=== PATIENT | male | born 1940 | race Caucasian/White ===

== ENCOUNTER 2020-07-30 23:25 | Emergency (ER) | payer MEDICARE, MEDICAID ==
[2020-07-31] MEDS ORDERED: Acetaminophen 325 MG Tab PO PRN (00:05)
[2020-07-31] MEDS ORDERED: Sodium Chloride 0.9% 10 ML Syringe FLUSH PRN (00:07)
[2020-07-31 00:45] LABS: ANION GAP 9.3 mmol/L (5-15)
--- NOTE | 2020-07-31 01:27 | EDM.PDOC ---
ED HPI GENERAL MEDICAL PROBLEM - General Chief Complaint: General Stated Complaint: FEVER, COVID POSITIVE Time Seen by Provider: 07/31/20 01:00 Source of Information: Reports: [facility] Records History Limitations: Reports: Altered Mental Status - History of Present Illness INITIAL COMMENTS - FREE TEXT/NARRATIVE: 79-year-old male transferred by ground ambulance from [facility] in the [place], [place] for high fevers and hypoxemia. Patient was tested for COVID-19 on July 23 results confirmed a positive test in July 28. He began experiencing increased respiratory distress requiring O2 oxygen per nasal cannula. He began running fevers as high high as 103 and O2 saturations were dropping into the 80s per nursing report. He was transferred to [facility] further evaluation. Patient was placed on a nonrebreather mask at 15 L and O2 saturations improved to 90 to 91%. He was tachypneic. Temperature was 102 upon arrival and he was given Tylenol 650 mg. Temperature now is currently 99.8. He is lethargic and is unable to answer questions asked although he is able to speak and ask for orange juice. 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 He has been listed as a full code from his [facility]. Onset: Gradual Onset Date: 07/23/20 Duration: Day(s):, Getting Worse Location: Reports: Generalized Severity: Severe Improves with: Reports: Other (O2) Treatments SUBSTANCE ABUSE RN: Reports: Acetaminophen - Related Data Allergies Allergy/AdvReac Type Severity Reaction Status Date / Time No Known Drug Allergies Allergy Cannot Verified 07/30/20 23:30 Remember Home Meds: Home Meds Acetaminophen 500 mg PO Q6H PRN 07/30/20 [History] Acetaminophen 650 mg PO BEDTIME 07/30/20 [History] Aspirin 325 mg PO DAILY 07/30/20 [History] Benztropine [Cogentin] 0.5 mg PO BID 07/30/20 [History] Divalproex Sodium [Depakote ER] 250 mg PO BID 07/30/20 [History] Divalproex Sodium [Depakote ER] 500 mg PO BID 07/30/20 [History] Famotidine 20 mg PO BID 07/30/20 [History] Fluticasone Propionate [Flonase Allergy Relief] 1 spray NS DAILY PRN 07/30/20 [History] Furosemide [Lasix] 40 mg PO DAILY 07/30/20 [History] Levothyroxine 125 mcg PO ACBREAKFAST 07/30/20 [History] Mag Hydrox/Aluminum Hyd/Simeth [Liquid Antacid Suspension] 5 ml PO Q4H PRN 07/30/20 [History] Melatonin 5 mg PO BEDTIME 07/30/20 [History] Metoprolol Tartrate 12.5 mg PO BID 07/30/20 [History] Mirtazapine 30 mg PO BEDTIME 07/30/20 [History] OLANZapine [Olanzapine] 10 mg PO BEDTIME 07/30/20 [History] Potassium Chloride 20 meq PO ASDIRECTED 07/30/20 [History] polyethylene glycoL 3350 [MiraLAX] 17 gm PO DAILY 07/30/20 [History] risperiDONE [Risperdal] 4 mg PO BEDTIME 07/31/20 [History] Past Medical History HEENT History: Reports: Allergic Rhinitis Cardiovascular History: Reports: Heart Failure, High Cholesterol, Hypertension, Pulmonary Hypertension Other Cardiovascular History: Rheumatic tricuspid insufficiency. Left bundle branch block Respiratory History: Reports: Other (See Below) Other Respiratory History: Covid positive - 2019 Gastrointestinal History: Reports: Chronic Constipation, GERD Genitourinary History: Reports: Urinary Incontinence Musculoskeletal History: Reports: Osteoarthritis Other Musculoskeletal History: trochanteric bursitis of right hip Neurological History: Reports: Alzheimers Disease Psychiatric History: Reports: Alzheimers Disease, Dementia Endocrine/Metabolic History: Reports: Hypokalemia, Hypomagnesemia, Hypothyroidism Other Endocrine/Metabolic History: Hashimotos Other Hematologic History: Thrombocytopenia - Infectious Disease History Other Infectious Disease History: Covid positive - 2019 - Past Surgical History Cardiovascular Surgical History: Reports: Pacer Social & Family History - Family History Psychiatric: Reports: Bipolar - Tobacco Use Smoking Status *Q: Former Smoker Used Tobacco, but Quit: No ED ROS GENERAL - Review of Systems Review Of Systems: Unable To Obtain Reason Not Obtained: Noncommunicable ED EXAM, GENERAL - Physical Exam Exam: See Below Exam Limited By: Altered Mental Status General Appearance: Lethargic, Moderate Distress Nose: Normal Inspection Throat/Mouth: No: Perioral Cyanosis Head: Atraumatic Neck: Normal Inspection Respiratory/Chest: Decreased Breath Sounds, Rhonchi Cardiovascular: Tachycardia GI/Abdominal: Soft, Non-Tender Extremities: Non-Tender Neurological: Inattentive, Confused, Slow to Respond Psychiatric: Flat Affect Skin Exam: Increased Warmth Course - Vital Signs Last Recorded V/S: Last Vital Signs Temp 99.3 F 07/31/20 01:00 Pulse 102 H 07/31/20 01:15 Resp 44 H 07/31/20 01:15 BP 115/96 H 07/31/20 01:15 Pulse Ox 92 L 07/31/20 01:15 - Orders/Labs/Meds Orders: Active Orders 24 hr Category Date Time Status Peripheral IV Care [RC] . DIRECTED Care 07/31/20 00:09 Active Chest 1V Frontal [CR] Stat Exams 07/31/20 00:08 Ordered Acetaminophen [TylenoL] Med 07/31/20 00:05 Active 650 mg PO Q4H PRN Sodium Chloride 0.9% [Saline Flush] Med 07/31/20 00:07 Active 10 ml FLUSH Q8HR PRN Isolation [COMM] Stat Oth 07/31/20 00:05 Ordered Peripheral IV Insertion Adult [OM.PC] Routine Oth 07/31/20 00:07 Ordered Medication Orders Acetaminophen (Tylenol) 650 mg PO Q4H PRN PRN Reason: Fever Greater Than 101 Sodium Chloride (Saline Flush) 10 ml FLUSH Q8HR PRN PRN Reason: keep vein open Labs: Laboratory Tests 07/30/20 07/30/20 Range/Units 23:35 23:35 WBC 6.31 (5.00-10.00) 10^3/uL RBC 4.53 (4.50-6.00) 10^6/uL Hgb 14.1 (13.0-17.0) g/dL Hct 43.7 (40.0-52.0) % MCV 96.5 H (82.0-92.0) fL MCH 31.1 H (27.0-31.0) pg MCHC 32.3 (32.0-36.0) g/dL RDW 14.0 (11.5-14.5) % Plt Count 87 L (150-400) 10^3/uL MPV 13.5 H (7.4-10.4) fL Immature Gran % (Auto) 1.9 (0.0-5.0) % Neut % (Auto) 73.3 H (50.0-70.0) % Lymph % (Auto) 15.1 L (20.0-40.0) % [place] % (Auto) 9.5 H (2.0-8.0) % Eos % (Auto) 0.0 L (1.0-3.0) % Baso % (Auto) 0.2 (0.0-1.0) % Neut # (Auto) 4.63 (2.50-7.00) 10^3/uL Lymph # (Auto) 0.95 L (1.00-4.00) 10^3/uL [place] # (Auto) 0.60 (0.10-0.80) 10^3/uL Eos # (Auto) 0.00 L (0.10-0.30) 10^3/uL Baso # (Auto) 0.01 (0.00-0.10) 10^3/uL Immature Gran # (Auto) 0.12 (0.00-0.50) 10^3/uL Sodium 141 (136-145) mmol/L Potassium 4.3 (3.3-5.3) mmol/L Chloride 103 (98-115) mmol/L Carbon Dioxide 33.0 H (21.0-32.0) mmol/L Anion Gap 9.3 (5-15) mmol/L BUN 42 H (6-25) mg/dL Creatinine 1.20 H (0.51-1.17) mg/dL Est Cr Clr Drug Dosing 54.79 mL/min Estimated GFR (MDRD) 58 mL/min Glucose 144 H (75 - 99) mg/dL Calcium 8.4 L (8.7-10.3) mg/dL Meds: Medications Generic Name Dose Route Start Last Admin Trade Name Freq PRN Reason Stop Dose Admin Acetaminophen 650 mg 07/31/20 00:05 Tylenol PO Q4H PRN Fever Greater Than 101 Sodium Chloride 10 ml 07/31/20 00:07 Saline Flush FLUSH Q8HR PRN keep vein open - Radiology Interpretation Free Text/Narrative:: 1 view chest x-ray Findings: Pacemaker noted with leads in the right heart Lower lobe consolidation and pleural fluid, possible pneumonia Bilateral perihilar and right basilar atelectasis Enlarged. No acute bony abnormalities Impression: Left basilar consolidation and pleural fluid, possible pneumonia Lateral perihilar and right basilar atelectasis Departure - Departure Time of Disposition: 02:00 Disposition: DC/Tfer to Critical Access 66 Condition: Serious Clinical Impression: Lab test positive for detection of COVID-19 virus, Hypoxemia requiring supplemental oxygen, Febrile illness, acute - Discharge Information Instructions: Hypoxemia, COVID-19, Fever, Adult, [id number] Referrals: Ivonne Harry DRILL PRESSER [Primary Care Provider] - Sepsis Event Note (ED) - Evaluation Sepsis Screening Result: Possible Sepsis Risk - Focused Exam Vital Signs: Vital Signs Temp Pulse Resp BP Pulse Ox 07/31/20 01:15 102 H 44 H 115/96 H 92 L 07/31/20 01:00 99.3 F 105 H 32 H 154/78 H 91 L 07/31/20 00:45 104 H 33 H 148/85 H 91 L 07/31/20 00:30 104 H 36 H 144/65 H 90 L 07/31/20 00:15 102 H 37 H 132/81 89 L 07/31/20 00:12 100.0 F 07/31/20 00:00 102 H 36 H 127/69 89 L 07/30/20 23:45 105 H 39 H 118/64 91 L 07/30/20 23:44 102.0 F H 106 H 40 H 100/67 91 L - My Orders Last 24 Hours: My Active Orders 07/31/20 00:05 Acetaminophen [TylenoL] 650 mg PO Q4H PRN Isolation [COMM] Stat 07/31/20 00:07 Sodium Chloride 0.9% [Saline Flush] 10 ml FLUSH Q8HR PRN Peripheral IV Insertion Adult [OM.PC] Routine 07/31/20 00:08 Chest 1V Frontal [CR] Stat 07/31/20 00:09 Peripheral IV Care [RC] . DIRECTED - Assessment/Plan Last 24 Hours: My Active Orders 07/31/20 00:05 Acetaminophen [TylenoL] 650 mg PO Q4H PRN Isolation [COMM] Stat 07/31/20 00:07 Sodium Chloride 0.9% [Saline Flush] 10 ml FLUSH Q8HR PRN Peripheral IV Insertion Adult [OM.PC] Routine 07/31/20 00:08 Chest 1V Frontal [CR] Stat 07/31/20 00:09 Peripheral IV Care [RC] . DIRECTED Assessment:: 1. COVID positive test 2. Acute hypoxemia requiring supplemental oxygen 3. Febrile Plan: 1. Transfer to critical Access for acute hypoxemia due to COVID, patient will be transferred to [facility] 2. Febrile
[2020-07-31 01:47] VITALS: BP 141/106; PULSE 99
--- NOTE | 2020-07-31 08:31 | CR ---
[id number] RAD/RAD Chest PA or AP 1V EXAM: SINGLE VIEW CHEST. INDICATION: RESPIRATORY FAILURE COMPARISON: NO PREVIOUS SIMILAR EXAM IS AVAILABLE FINDINGS: Small bilateral effusions are seen Bibasilar atelectasis is identified The cardiac silhouette is enlarged The aorta is tortuous. A pacemaker is also noted IMPRESSION: BILATERAL EFFUSIONS AND BIBASILAR ATELECTASIS CONSIDER FOLLOW-UP RADIOGRAPH QUESTION OF EARLY RIGHT UPPER LOBE PNEUMONIA Kwadwo Le MD 07/31/20 [id number] Thank you for allowing us to participate in the care of your patient.
== END 2020-07-31 02:00 ==
LOC: KA.ED 23:25
DX: U07.1 COVID-19 (principal); R09.02 Hypoxemia; I11.0 Hypertensive heart disease with heart failure; I50.9 Heart failure, unspecified; K21.9 Gastro-esophageal reflux disease without esophagitis; M19.90 Unspecified osteoarthritis, unspecified site; G30.9 Alzheimer's disease, unspecified; F02.80 Dementia in other diseases classified elsewhere, unspecified severity, without behavioral disturbance, psychotic disturbance, mood disturbance, and anxiety; E03.9 Hypothyroidism, unspecified; Z87.891 Personal history of nicotine dependence; Z79.82 Long term (current) use of aspirin; Z79.899 Other long term (current) drug therapy
CPT/HCPCS: 36415; 71045; 80048; 85025; 99285-25

== ENCOUNTER 2021-10-18 11:41 | Emergency (ER) | payer MEDICARE, MEDICAID ==
--- NOTE | 2021-10-18 12:06 | EDM.PDOC ---
ED HPI GENERAL MEDICAL PROBLEM - General Chief Complaint: General Stated Complaint: POSSIBLE SEPSIS Time Seen by Provider: 10/18/21 11:53 - History of Present Illness INITIAL COMMENTS - FREE TEXT/NARRATIVE: Jagdish, 81-year-old male, transported here by ambulance from [facility] in [place]. Understanding was he was question to be septic as he had a low-grade fever last night and again this morning. Was given acetaminophen which seemed to improve the fever last night. Was tested negative for Covid. Has no major complaints other than stating he is just not felt well in general. Denies any major complaints. Documented history of dementia (Alzheimer's) eyes with a visual disturbance. He is appropriately responsive and conversive upon his arrival and throughout the stay. Onset: Gradual generalized Pain Score (Numeric/FACES): 5 - Related Data Allergies Allergy/AdvReac Type Severity Reaction Status Date / Time No Known Drug Allergies Allergy Cannot Verified 10/18/21 12:45 Remember Home Meds: Home Meds Acetaminophen 500 mg PO Q6H PRN 07/30/20 [History] Acetaminophen 650 mg PO BEDTIME 07/30/20 [History] Aspirin 325 mg PO DAILY 07/30/20 [History] Benztropine [Cogentin] 0.5 mg PO BID 07/30/20 [History] Divalproex Sodium [Depakote ER] 250 mg PO BID 07/30/20 [History] Divalproex Sodium [Depakote ER] 500 mg PO BID 07/30/20 [History] Famotidine 20 mg PO BID 07/30/20 [History] Fluticasone Propionate [Flonase Allergy Relief] 1 spray NS DAILY PRN 07/30/20 [History] Furosemide [Lasix] 40 mg PO DAILY 07/30/20 [History] Levothyroxine 125 mcg PO ACBREAKFAST 07/30/20 [History] Mag Hydrox/Aluminum Hyd/Simeth [Liquid Antacid Suspension] 5 ml PO Q4H PRN 07/30/20 [History] Melatonin 5 mg PO BEDTIME 07/30/20 [History] Metoprolol Tartrate 12.5 mg PO BID 07/30/20 [History] Mirtazapine 30 mg PO BEDTIME 07/30/20 [History] OLANZapine [Olanzapine] 10 mg PO BEDTIME 07/30/20 [History] Potassium Chloride 20 meq PO ASDIRECTED 07/30/20 [History] polyethylene glycoL 3350 [MiraLAX] 17 gm PO DAILY 07/30/20 [History] risperiDONE [Risperdal] 4 mg PO BEDTIME 07/31/20 [History] Past Medical History HEENT History: Reports: Allergic Rhinitis Cardiovascular History: Reports: Heart Failure, High Cholesterol, Hypertension, Pulmonary Hypertension Other Cardiovascular History: Rheumatic tricuspid insufficiency. Left bundle branch block Respiratory History: Reports: Other (See Below) Other Respiratory History: Covid positive - 2019 Gastrointestinal History: Reports: Chronic Constipation, GERD Genitourinary History: Reports: Urinary Incontinence Musculoskeletal History: Reports: Osteoarthritis Other Musculoskeletal History: trochanteric bursitis of right hip Neurological History: Reports: Alzheimers Disease Psychiatric History: Reports: Alzheimers Disease, Dementia Endocrine/Metabolic History: Reports: Hypokalemia, Hypomagnesemia, Hypothyroidism Other Endocrine/Metabolic History: Hashimotos Other Hematologic History: Thrombocytopenia - Infectious Disease History Other Infectious Disease History: Covid positive - 2019 - Past Surgical History Cardiovascular Surgical History: Reports: Pacer Social & Family History - Family History Family Medical History: No Pertinent Family History Psychiatric: Reports: Bipolar ED ROS GENERAL - Review of Systems Review Of Systems: Comprehensive ROS is negative, except as noted in HPI. Reason Not Obtained: Per review of reports, records, and denial of any point fax. ED EXAM, GENERAL - Physical Exam Exam: See Below Free Text/Narrative:: Alert, oriented, demonstrating no distress. HEENT is negative discharge or deformity. Neck soft supple no rigidity or lymphadenopathy appreciated. Thorax mildly diminished at the bases with no wheezes no crackles noted. Cardiac regular. I do not appreciate any murmur. Abdomen is soft bowel sounds are present. There is no tenderness in the inguinal area no herniation noted. Chronic aches and pains to the bilateral knees which she states is been ongoing for several months. He has a chronic ulceration to the base of the left foot to the heel area which will be cultured. He has what appears chronic contracture of the fourth fifth digits of the left hand partially the third digit. He remains appropriately responsive with no neurological deficits of acute nature. #1 Interpretation EKG Date: 10/18/21 Time: 12:31 Rhythm: Other (Paced) Rate (Beats/Min): 69 Comparison: NA - No Prior EKG Course - Vital Signs Last Recorded V/S: Last Vital Signs Temp 97.7 F 10/18/21 14:16 Pulse 89 10/18/21 14:16 Resp 13 10/18/21 14:16 BP 126/53 L 10/18/21 14:16 Pulse Ox 89 L 10/18/21 14:16 - Orders/Labs/Meds Orders: Active Orders 24 hr Category Date Time Status Peripheral IV Care [RC] . DIRECTED Care 10/18/21 12:14 Active CULTURE BLOOD [BC] Stat Lab 10/18/21 12:30 Received CULTURE BLOOD [BC] Stat Lab 10/18/21 12:36 Received CULTURE, ANAEROBE & AEROBE [MREF] Stat Lab 10/18/21 14:00 Received Sodium Chloride 0.9% [Saline Flush] Med 10/18/21 12:13 Active 10 ml FLUSH Q8HR PRN Blood Culture x2 Reflex Set [OM.PC] Stat Oth 10/18/21 12:13 Ordered Peripheral IV Insertion Adult [OM.PC] Stat Oth 10/18/21 12:14 Ordered EKG 12 Lead [EK] Stat Ther 10/18/21 12:14 Ordered Medication Orders Sodium Chloride (Sodium Chloride 0.9% 10 Ml Syringe) 10 ml FLUSH Q8HR PRN PRN Reason: keep vein open Labs: Laboratory Tests 10/18/21 10/18/21 10/18/21 Range/Units 12:14 12:14 12:30 WBC (5.00-10.00) 10^3/uL RBC (4.50-6.00) 10^6/uL Hgb (13.0-17.0) g/dL Hct (40.0-52.0) % MCV (82.0-92.0) fL MCH (27.0-31.0) pg MCHC (32.0-36.0) g/dL RDW (11.5-14.5) % Plt Count (150-400) 10^3/uL MPV (7.4-10.4) fL Immature Gran % (Auto) (0.0-5.0) % Neut % (Auto) (50.0-70.0) % Lymph % (Auto) (20.0-40.0) % [place] % (Auto) (2.0-8.0) % Eos % (Auto) (1.0-3.0) % Baso % (Auto) (0.0-1.0) % Neut # (Auto) (2.50-7.00) 10^3/uL Lymph # (Auto) (1.00-4.00) 10^3/uL [place] # (Auto) (0.10-0.80) 10^3/uL Eos # (Auto) (0.10-0.30) 10^3/uL Baso # (Auto) (0.00-0.10) 10^3/uL Immature Gran # (Auto) (0.00-0.50) 10^3/uL D-Dimer, Quantitative 3710 H (<400) ng/mL Sodium (136-145) mmol/L Potassium (3.5-5.1) mmol/L Chloride (98-107) mmol/L Carbon Dioxide (21.0-32.0) mmol/L Anion Gap (5-15) mmol/L BUN (7-18) mg/dL Creatinine (0.51-1.17) mg/dL Est Cr Clr Drug Dosing mL/min Estimated GFR (MDRD) mL/min Glucose (70-140) mg/dL Lactic Acid 1.6 (0.4-2.0) mmol/L Calcium (8.7-10.3) mg/dL Total Bilirubin (0.2-1.0) mg/dL AST (15-37) U/L ALT (14-63) U/L Alkaline Phosphatase (46-116) U/L Total Protein (6.4-8.2) g/dL Albumin (3.40-5.00) g/dL Specimen Type Urincath Urine Color Yellow (YELLOW) Urine Appearance Clear (CLEAR) Urine pH 5.5 (5.0-9.0) Ur Specific [place] 1.020 (1.005-1.030) Urine Protein Negative (NEGATIVE) mg/dL Urine Glucose (UA) Negative (NEGATIVE) mg/dL Urine Ketones Negative (NEGATIVE) mg/dL Urine Occult Blood Negative (NEGATIVE) Urine Nitrite Negative (NEGATIVE) Urine Bilirubin Negative (NEGATIVE) Urine Urobilinogen 0.2 (0.2-1.0) E.U./dL Ur Leukocyte Esterase Negative (NEGATIVE) 10/18/21 10/18/21 Range/Units 12:30 12:30 WBC 11.56 H (5.00-10.00) 10^3/uL RBC 3.71 L (4.50-6.00) 10^6/uL Hgb 11.4 L D (13.0-17.0) g/dL Hct 37.1 L (40.0-52.0) % MCV 100.0 H D (82.0-92.0) fL MCH 30.7 (27.0-31.0) pg MCHC 30.7 L (32.0-36.0) g/dL RDW 12.3 (11.5-14.5) % Plt Count 121 L (150-400) 10^3/uL MPV 12.0 H (7.4-10.4) fL Immature Gran % (Auto) 0.3 (0.0-5.0) % Neut % (Auto) 65.6 (50.0-70.0) % Lymph % (Auto) 16.5 L (20.0-40.0) % [place] % (Auto) 17.1 H (2.0-8.0) % Eos % (Auto) 0.3 L (1.0-3.0) % Baso % (Auto) 0.2 (0.0-1.0) % Neut # (Auto) 7.58 H (2.50-7.00) 10^3/uL Lymph # (Auto) 1.91 (1.00-4.00) 10^3/uL [place] # (Auto) 1.98 H (0.10-0.80) 10^3/uL Eos # (Auto) 0.03 L (0.10-0.30) 10^3/uL Baso # (Auto) 0.02 (0.00-0.10) 10^3/uL Immature Gran # (Auto) 0.04 (0.00-0.50) 10^3/uL D-Dimer, Quantitative (<400) ng/mL Sodium 143 (136-145) mmol/L Potassium 4.3 (3.5-5.1) mmol/L Chloride 102 (98-107) mmol/L Carbon Dioxide 35.4 H (21.0-32.0) mmol/L Anion Gap 9.9 (5-15) mmol/L BUN 29 H (7-18) mg/dL Creatinine 1.09 (0.51-1.17) mg/dL Est Cr Clr Drug Dosing 53.15 mL/min Estimated GFR (MDRD) > 60 mL/min Glucose 134 (70-140) mg/dL Lactic Acid (0.4-2.0) mmol/L Calcium 9.1 (8.7-10.3) mg/dL Total Bilirubin 0.7 (0.2-1.0) mg/dL AST 24 (15-37) U/L ALT 19 (14-63) U/L Alkaline Phosphatase 55 (46-116) U/L Total Protein 6.8 (6.4-8.2) g/dL Albumin 2.55 L (3.40-5.00) g/dL Specimen Type Urine Color (YELLOW) Urine Appearance (CLEAR) Urine pH (5.0-9.0) Ur Specific [place] (1.005-1.030) Urine Protein (NEGATIVE) mg/dL Urine Glucose (UA) (NEGATIVE) mg/dL Urine Ketones (NEGATIVE) mg/dL Urine Occult Blood (NEGATIVE) Urine Nitrite (NEGATIVE) Urine Bilirubin (NEGATIVE) Urine Urobilinogen (0.2-1.0) E.U./dL Ur Leukocyte Esterase (NEGATIVE) Meds: Medications Generic Name Dose Route Start Last Admin Trade Name Freq PRN Reason Stop Dose Admin Sodium Chloride 10 ml 10/18/21 12:13 Sodium Chloride 0.9% 10 Ml Syringe FLUSH Q8HR PRN keep vein open - Radiology Interpretation Free Text/Narrative:: No evidence of pneumonia. - Re-Assessments/Exams Free Text/Narrative Re-Assessment/Exam: 10/18/21 15:33 On arrival with Jagdish not giving any specifics other than he did not feel well records stating he had been febrile and given Tylenol with apparent resolution. Phone call was placed to [facility] in [place] and I spoke with his legal guardian Calderon Turciosrichardvarghese As we had reviewed records finding that [facility] was one of the guarantee of payment sources. It was decided at that time that if he would remain on hospice we should return him to the facility, and if he had been revoked/declined of hospice consideration for minimal work-up to be given. Free Text/Narrative Re-Assessment/Exam: 10/18/21 15:37 Referring: Call to [facility] in [place] after lab findings revealed negative chest x-ray for pulmonary infiltrates/pneumonia, urinalysis electrolytes, and CBC within normal limits. Discussed elevation of D-dimer which would lead to further scanning and treatment which was declined for any further evaluation per Calderon Galan. Departure - Departure Time of Disposition: 15:28 Disposition: DC/Tfer to SNF 03 Condition: Fair Clinical Impression: Elevated d-dimer, Wound discharge Dementia Qualifiers: Dementia type: Alzheimer's Alzheimer's disease onset: unspecified onset Dementia behavioral disturbance: with behavioral disturbance Qualified Code(s): G30.9 - Alzheimer's disease, unspecified - Discharge Information *PRESCRIPTION DRUG MONITORING PROGRAM REVIEWED*: Not Applicable *COPY OF PRESCRIPTION DRUG MONITORING REPORT IN PATIENT DELTA: Not Applicable Instructions: Dementia, [id number] Referrals: PCP,Not In Area [Ordering Only Provider] - Meng Wattres MD [Physician] - Forms: ED Department Discharge Additional Instructions: Will return to the facility with all previous medications, diet, and routines to be followed. Culture is pending on the left foot ulceration and report will be forwarded once received. Continue everything as directed and contact with [facility] in [place] for any adjustments in treatment cares. Communication with Calderon egan was made twice this encounter. Sepsis Event Note (ED) - Focused Exam Vital Signs: Vital Signs Temp Pulse Resp BP Pulse Ox 10/18/21 14:16 97.7 F 89 13 126/53 L 89 L 10/18/21 13:33 68 15 112/50 L 97 10/18/21 13:17 98 10/18/21 13:00 69 16 119/50 L 97 10/18/21 12:30 60 15 130/55 L 97 10/18/21 12:00 68 17 131/61 97 10/18/21 11:47 97 F 62 14 121/52 L 94 L - Problem List & Annotations (1) Wound discharge SNOMED Code(s): 170027303 Code(s): T14.8XXA - OTHER INJURY OF UNSPECIFIED BODY REGION, INITIAL ENCOUNTER Status: Acute Current Visit: Yes (2) Dementia SNOMED Code(s): 31172017 Code(s): F03.90 - UNSPECIFIED DEMENTIA WITHOUT BEHAVIORAL DISTURBANCE Status: Acute Current Visit: Yes Qualifiers: Dementia type: Alzheimer's Alzheimer's disease onset: unspecified onset Dementia behavioral disturbance: with behavioral disturbance Qualified Code(s): G30.9 - Alzheimer's disease, unspecified; F02.81 - Dementia in other diseases classified elsewhere with behavioral disturbance (3) Elevated d-dimer SNOMED Code(s): 605006079 Code(s): R79.89 - OTHER SPECIFIED ABNORMAL FINDINGS OF BLOOD CHEMISTRY Status: Acute Priority: Medium Current Visit: Yes - Problem List Review Problem List Initiated/Reviewed/Updated: Yes - My Orders Last 24 Hours: My Active Orders 10/18/21 12:13 Sodium Chloride 0.9% [Saline Flush] 10 ml FLUSH Q8HR PRN Blood Culture x2 Reflex Set [OM.PC] Stat 10/18/21 12:14 Peripheral IV Care [RC] . DIRECTED Peripheral IV Insertion Adult [OM.PC] Stat EKG 12 Lead [EK] Stat 10/18/21 12:30 CULTURE BLOOD [BC] Stat 10/18/21 12:36 CULTURE BLOOD [BC] Stat 10/18/21 14:00 CULTURE, ANAEROBE & AEROBE [MREF] Stat - Assessment/Plan Last 24 Hours: My Active Orders 10/18/21 12:13 Sodium Chloride 0.9% [Saline Flush] 10 ml FLUSH Q8HR PRN Blood Culture x2 Reflex Set [OM.PC] Stat 10/18/21 12:14 Peripheral IV Care [RC] . DIRECTED Peripheral IV Insertion Adult [OM.PC] Stat EKG 12 Lead [EK] Stat 10/18/21 12:30 CULTURE BLOOD [BC] Stat 10/18/21 12:36 CULTURE BLOOD [BC] Stat 10/18/21 14:00 CULTURE, ANAEROBE & AEROBE [MREF] Stat Plan: Will return to the facility with all previous medications, diet, and routines to be followed. Culture is pending on the left foot ulceration and report will be forwarded once received. Continue everything as directed and contact with [facility] in [place] for any adjustments in treatment cares. Communication with Calderon egan was made twice this encounter.
[2021-10-18] MEDS ORDERED: Sodium Chloride 0.9% 10 ML Syringe FLUSH PRN (12:13)
--- NOTE | 2021-10-18 12:52 | CR ---
[id number] RAD/RAD Chest PA or AP 1V EXAM: RAD Chest PA or AP 1V INDICATION: FEVER. COMPARISON: July 31, 2020. DISCUSSION: Left chest wall Mediport. Cardiomediastinal silhouette is stable in size and contour. No infiltrate, effusion, pneumothorax, or edema. Low lung volumes associated vascular crowding. Bibasilar subsegmental atelectasis and or scarring. Overall slight improved aeration of the lungs bilaterally. IMPRESSION: No acute cardiopulmonary abnormality. Sunil Fry DO 10/18/21 [id number] Thank you for allowing us to participate in the care of your patient.
[2021-10-18 13:00] LABS: ANION GAP 9.9 mmol/L (5-15); CHLORIDE,CL 102 mmol/L (98-107); SODIUM,NA 143 mmol/L (136-145)
== END 2021-10-18 16:00 ==
LOC: KA.ED 11:41
DX: L97.529 Non-pressure chronic ulcer of other part of left foot with unspecified severity (principal); G30.9 Alzheimer's disease, unspecified; F02.81 Dementia in other diseases classified elsewhere, unspecified severity, with behavioral disturbance; R79.1 Abnormal coagulation profile; I11.0 Hypertensive heart disease with heart failure; I50.9 Heart failure, unspecified; K21.9 Gastro-esophageal reflux disease without esophagitis; M19.90 Unspecified osteoarthritis, unspecified site; E03.9 Hypothyroidism, unspecified; Z86.16 Personal history of COVID-19; Z79.82 Long term (current) use of aspirin; Z79.899 Other long term (current) drug therapy
CPT/HCPCS: 36415; 71045; 80053; 81003; 83605; 85025; 85379; 87040; 87070; 87075; 87186; 87205; 93010; 99284; 99285-25